=== PATIENT | female | born 1960 | race Caucasian/White ===

== ENCOUNTER 2023-06-23 05:28 | Outpatient (CLI) | payer OTHER ==
[~2023-06-23] VITALS: Ht 154.9 cm; Wt 117.9 kg
[2023-06-23] MEDS ORDERED: INSU100I34 SQ (13:51)
[2023-06-23] MEDS ORDERED: WRF1T PO (13:51)
[2023-06-23] MEDS ORDERED: ENOX120D5 SQ (13:51)
[2023-06-23] MEDS ORDERED: BUPR200T7 PO (13:51)
[2023-06-23] MEDS ORDERED: PROP20TA5 PO (13:51)
[2023-06-23] MEDS ORDERED: WARF-48 PO (13:51)
[2023-06-23] MEDS ORDERED: ATOR80TA76 PO (13:51)
[2023-06-23] MEDS ORDERED: INSU100I23 SQ (13:51)
[2023-06-23] MEDS ORDERED: IRON1TAB97 PO (13:51)
[2023-06-23] MEDS ORDERED: CITA20TA9 PO (13:51)
== END 2023-06-23 14:03 | disposition home or self-care (01) ==
LOC: PREOP 05:28
PROVIDERS: ATTEND Obstetrics & Gynecology
DX: Z01.818 Encounter for other preprocedural examination (principal)

== ENCOUNTER 2023-06-30 06:15 | Day surgery (SDC) | payer OTHER ==
[~2023-06-30] VITALS: Ht 157 cm; Wt 117.9 kg
[2023-06-30] VITALS (10 sets, daily range): BP systolic 126–179; BP diastolic 47–93
[~2023-06-30 06:15] MED LIST: ATOR80TA76 PO; BUPR200T7 PO; CITA20TA9 PO; ENOX120D5 SQ; INSU100I23 SQ; INSU100I34 SQ; IRON1TAB97 PO; PROP20TA5 PO; WARF-48 PO; WRF1T PO
[2023-06-30] MEDS ORDERED: LACTATED RINGERS 1,000 ML 1,000 ML IV PRN (06:30)
[2023-06-30] MEDS ORDERED: BUPIVACAINE 0.25% 30 ML VIAL ONE (07:00)
[2023-06-30 07:06] LABS: BASOPHILS % (AUTO) 0 % (0-10); EOSINOPHILS # (AUTO) 0.2 10^3/uL (0.0-0.3); EOSINOPHILS % (AUTO) 3 % (0-10); HEMATOCRIT 25 % (35-52); HEMOGLOBIN 7.8 g/dL (11.5-16.0); LYMPHOCYTES # (AUTO) 1.3 10^3/uL (1.0-4.0); LYMPHOCYTES % (AUTO) 16 % (12-44); MEAN CORPUSCULAR HEMOGLOBIN 28 pg (25-34); MEAN CORPUSCULAR HGB CONC 31 g/dL (32-36); MEAN CORPUSCULAR VOLUME 89 fL (80-99); MEAN PLATELET VOLUME 10.2 fL (9.0-12.2); MONOCYTES # (AUTO) 0.5 10^3/uL (0.0-1.0); MONOCYTES % (AUTO) 6 % (0-12); NEUTROPHILS # (AUTO) 6.2 10^3/uL (1.8-7.8); NEUTROPHILS % (AUTO) 74 % (42-75); PLATELET COUNT 244 10^3/uL (130-400); WHITE BLOOD COUNT 8.4 10^3/uL (4.3-11.0)
[2023-06-30] MEDS ORDERED: fentaNYL INJECTION 100 MCG/2 ML VIAL ONE (07:11)
[2023-06-30] MEDS ORDERED: LIDOCAINE PF 2% 5 ML VIAL ONE (07:12)
[2023-06-30] MEDS ORDERED: proPOfol INJECTION 200 MG/20 ML VIAL IV ONE (07:12)
[2023-06-30] MEDS ORDERED: ONDANSETRON INJECTION 4 MG/2 ML (SDV) ONE (07:12)
--- NOTE | 2023-06-30 07:26 | Progress Note-Pre Operative ---
Pre-Operative Progress Note Date of Available H&P: Jun 30, 2023 Date H&P Reviewed: Jun 30, 2023 Time H&P Reviewed: 07:00 History & Physical: H&P Reviewed, Patient Examed, No changes noted Pre-Operative Diagnosis: FRANTZ DAO DO Jun 30, 2023 07:26
[2023-06-30] MEDS ORDERED: HYDROcodone/ACETAMINOPHEN 5 MG/325 MG TABLET PO PRN (07:30)
[2023-06-30] MEDS ORDERED: KETOROLAC INJ 30 MG/ML VIAL IVP ONE (07:30)
[2023-06-30] MEDS ORDERED: D5 LR 1,000 ML IV SOLN 1,000 ML IV SCH (07:30)
[2023-06-30] MEDS ORDERED: ONDANSETRON INJECTION 4 MG/2 ML (SDV) IVP PRN (07:30)
[2023-06-30] MEDS ORDERED: BUPIVACAINE 0.25% 30 ML VIAL INJ ONE (07:45)
[2023-06-30] MEDS ORDERED: SEVOFLURANE (ULTANE) 15 ML INHAL SOLN ONE (07:51)
[2023-06-30] MEDS ORDERED: KETOROLAC INJ 30 MG/ML VIAL ONE (07:57)
--- NOTE | 2023-06-30 08:04 | Anesthesia-General Post-Op ---
General Patient Condition Mental Status/LOC: Same as Preop Cardiovascular: Satisfactory Nausea/Vomiting: Absent Respiratory: Satisfactory Pain: Controlled Complications: Absent Post Op Complications Complications None Follow Up Care/Instructions Patient Instructions None needed. Anesthesia/Patient Condition Patient Condition Patient is doing well, no complaints, stable vital signs, no apparent adverse anesthesia problems. No complications reported per nursing. CHUCKIE ANDERSEN CRNA Jun 30, 2023 08:04
[2023-06-30] MEDS ORDERED: fentaNYL INJECTION 100 MCG/2 ML VIAL IVP ONE (08:15)
[2023-06-30] MEDS ORDERED: morphine INJ 10 MG/ML 1ML (SYR OR VIAL) IVP ONE (08:15)
--- NOTE | 2023-06-30 08:40 | OPERATIVE REPORT ---
DATE OF SERVICE: 06/30/2023 PREOPERATIVE DIAGNOSES: 1. A 62-year-old female with postmenopausal bleeding. 2. Thickened endometrium on ultrasound. POSTOPERATIVE DIAGNOSES: 1. A 60-year-old female with postmenopausal bleeding. 2. Thickened endometrium on ultrasound. PROCEDURE: D and C. SURGEON: Frantz Borja DO ANESTHESIA: LMA general. ESTIMATED BLOOD LOSS: Minimal. URINE OUTPUT: 300 mL drained at the start of procedure. FLUIDS: 800 mL lactated Ringer's solution. FINDINGS: Grossly normal-appearing external female genitalia, a grade 2-3 rectocele, as well as copious amount of endometrial tissue expressed on endometrial curettage. SPECIMEN SENT: Endometrial curettings. INDICATIONS FOR PROCEDURE: This 62-year-old female, the patient who had sought consultation in my office from her primary care provider due to postmenopausal bleeding episodes. 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 I discussed with the patient needing to bridge her to a short-acting blood thinner in order to perform the procedure. Her position was able to do so in correlation with our operating room date. Once this was done, I reviewed with the patient the procedure in the preoperative area. After all of her questions were answered including risk of the procedure, consent was obtained, the patient was taken to the operating room. OPERATIVE REPORT IN DETAIL: Once in the operating room, anesthesia was administered and found to be adequate, was placed in dorsal lithotomy position, prepped and draped in normal sterile fashion. Timeout was performed. The bladder was drained using straight catheterization. A weighted speculum inserted to the patient's vagina. Right angle retractor was utilized. Cervix was grasped at 12 o'clock position using a long Allis clamp. We then performed paracervical block at 3 o'clock and 9 o'clock positions on the cervix. Care was taken to aspirate for injecting. A total of 5 mL of 0.25% Marcaine injected into each site. I then gently sounded the uterine cavity. Cavity depth was found to be 8 cm. I then gently dilated the cervix using Hanks dilators to maximum dilatation of approximately 1 cm, at which point I performed a gentle curettage using a small endometrial curette, collecting endometrial curettings from all surfaces until a gentle uterine cry is appreciated. All of this tissue that was collected was sent as endometrial curettings, after which no active bleeding noted from the cervix or any other areas of the vagina. All instruments were removed from the patient's vagina. The patient tolerated the procedure well and sent to recovery area in stable condition. Lap and sponge count was correct at the end of the procedure. Instrument counts correct as well. Job ID: [id number] DocumentID: [id number] Dictated Date: 06/30/2023 08:07:48 [employer] Inspector Date: 06/30/2023 08:38:00 Dictated By: FRANTZ BORJA DO
== END 2023-06-30 10:08 | disposition home or self-care (01) ==
LOC: SDC 06:15
PROVIDERS: ATTEND Obstetrics & Gynecology
DX: C54.1 Malignant neoplasm of endometrium (principal); N95.0 Postmenopausal bleeding; N81.6 Rectocele; D25.9 Leiomyoma of uterus, unspecified; D50.0 Iron deficiency anemia secondary to blood loss (chronic); T45.515S Adverse effect of anticoagulants, sequela; E66.01 Morbid (severe) obesity due to excess calories; Z68.42 Body mass index [BMI] 45.0-49.9, adult
CPT/HCPCS: 36415; 82947; 85025; 86850; 86900; 86901; 87081; 88305; 88341; 88342; 88360